=== PATIENT | male | born 1980 | race Caucasian/White ===

== ENCOUNTER 2016-10-03 14:32 | Emergency (ER) | payer SELFPAY ==
[2016-10-03 14:47] VITALS: BP 142/94
--- NOTE | 2016-10-03 16:20 | EDM.PDOC ---
ED HPI Skin/Rash - General Chief Complaint: Skin Complaint Stated Complaint: BUMPS ON SKIN Time Seen by Provider: 10/03/16 14:42 Source: Reports: Patient, RN notes reviewed - History of Present Illness INITIAL COMMENTS - FREE TEXT/NARRATIVE: Patient is concerned about lumps that have been appearing under his skin. He has had one of the right forearm for about 7 years but now he has multiple further lumps that her hearing both forearms, anterior chest and one on each thigh over the past several weeks. He states they are "painful. They never get red or inflamed. There's never been any drainage. He has not been sick with fever chills nausea vomiting or any other unusual symptomatology. He states he has been "gaining weight". He's been off work for about 3 or 4 months, possibly eating more than usual and less active than usual. He is not diabetic. He denies any type of IV drug use or anything of that nature. - Related Data Allergies Allergy/AdvReac Type Severity Reaction Status Date / Time No Known Allergies Allergy Verified 10/03/16 14:42 Home Meds: Ambulatory Orders Medication Instructions Recorded Confirmed . [No Known Home Meds] 10/03/16 10/03/16 Past Medical History - Past Health History Medical/Surgical History: Denies Medical/Surgical History Social & Family History - Tobacco Use Smoking Status *Q: Current Every Day Smoker Years of Tobacco use: 15 Packs/Tins Daily: 0.5 - Recreational Drug Use Recreational Drug Use: No ED ROS GENERAL - Review of Systems Review Of Systems: See Below Constitutional: Denies: fever, chills, diaphoresis HEENT: Denies: Sinus problem, Throat pain Respiratory: Denies: Shortness of Breath, Pleuritic Chest Pain Cardiovascular: Denies: Chest pain GI/Abdominal: Denies: Abdominal pain, Nausea, Vomiting Musculoskeletal: Reports: no symptoms Skin: Reports: other (He has multiple "lumps" Damon of bilateral arms, one on the anterior chest and one each anterior leg.) Neurological: Denies: Headache, Numbness, Tingling, Trouble Speaking, Gait Disturbance ED EXAM, SKIN/RASH Exam: See Below General Appearance: alert, no apparent distress Eye Exam: bilateral eye: PERRL Throat/Mouth: Normal inspection, Normal oropharynx Head: atraumatic. No: facial swelling Neck: supple, full range of motion. No: lymphadenopathy (L), lymphadenopathy (R ) Respiratory/Chest: no respiratory distress, lungs clear, normal breath sounds Cardiovascular: regular rate, rhythm GI/Abdominal: soft, non tender Back Exam: normal inspection Extremities: No: pedal edema, leg pain, increased warmth Neurological: alert, oriented, no motor/sensory deficits Psychiatric: normal affect, normal mood Skin: Warm, Dry, Normal color, Other (There is several raised areas of swelling bilateral forearms. They're not red or inflamed. There is very mild tenderness with these. He is one of the anterior chest and one of each anterior thigh). No : Erythema, Rash (He has no skin rash) Lymphatic: no adenopathy Course - Vital Signs Last Recorded V/S: Last Vital Signs Temp 97.1 F 10/03/16 14:42 Pulse 88 10/03/16 14:42 Resp 15 10/03/16 14:42 BP 142/94 H 10/03/16 14:42 Pulse Ox 98 10/03/16 14:42 - Orders/Labs/Meds Labs: Laboratory Tests 10/03/16 10/03/16 10/03/16 Range/Units 15:35 15:35 15:35 WBC 7.44 (4.23-9.07) K/mm3 RBC 5.72 (4.63-6.08) M/mm3 Hgb 17.1 (13.7-17.5) gm/L Hct 49.2 (40.1-51.0) % MCV 86.0 (79.0-92.2) fl MCH 29.9 (25.7-32.2) pg MCHC 34.8 (32.2-35.5) g/dl RDW Std Deviation 41.1 (35.1-43.9) fL Plt Count 381 H (163-337) K/mm3 MPV 8.6 L (9.4-12.3) fl Neut % (Auto) 56.0 (34.0-67.9) % Lymph % (Auto) 33.9 (21.8-53.1) % Marshall % (Auto) 6.9 (5.3-12.2) % Eos % (Auto) 2.4 (0.8-7.0) Baso % (Auto) 0.4 (0.1-1.2) % Neut # (Auto) 4.17 (1.78-5.38) K/mm3 Lymph # (Auto) 2.52 (1.32-3.57) K/mm3 Marshall # (Auto) 0.51 (0.30-0.82) K/mm3 Eos # (Auto) 0.18 (0.04-0.54) K/mm3 Baso # (Auto) 0.03 (0.01-0.08) K/mm3 Sodium 134 L (136-145) mEq/L Potassium 4.3 (3.5-5.1) mEq/L Chloride 100 (98-107) mEq/L Carbon Dioxide 25 (21-32) mEq/L Anion Gap 13.3 (5-15) BUN 14 (7-18) mg/dL Creatinine 0.9 (0.7-1.3) mg/dL Est Cr Clr Drug Dosing 122.01 mL/min Estimated GFR (MDRD) > 60 (>60) mL/min BUN/Creatinine Ratio 15.6 (14-18) Glucose 109 H (74-106) mg/dL Calcium 9.1 (8.5-10.1) mg/dL Total Bilirubin 0.5 (0.2-1.0) mg/dL AST 15 (15-37) U/L ALT 54 (16-63) U/L Alkaline Phosphatase 92 (46-116) U/L C-Reactive Protein < 0.2 (<1.0) mg/dL Total Protein 8.0 (6.4-8.2) g/dl Albumin 4.4 (3.4-5.0) g/dl Globulin 3.6 gm/dL Albumin/Globulin Ratio 1.2 (1-2) - Re-Assessments/Exams Free Text/Narrative Re-Assessment/Exam: 10/03/16 16:52 Labs have come back normal in terms of what his been looked at today. Elegy of these areas of swelling or not clear at this time. Does not appear to be anything seriously pathologic. And recommend he followup at the clinic for a complete physical, further investigation as needed. Departure - Departure Time of Disposition: 16:20 Disposition: Home, Self-Care 01 Clinical Impression: Nodule of soft tissue Referrals: PCP,None [Primary Care Provider] - Forms: ED Department Discharge Additional Instructions: Followup with Dr. Merida, [facility], call [phone] for appointment. Return to ED if symptoms worsening in any way
== END 2016-10-03 16:49 | disposition home or self-care (01) ==
LOC: JD.ED 14:32
DX: M79.9 Soft tissue disorder, unspecified (principal); F17.210 Nicotine dependence, cigarettes, uncomplicated
CPT/HCPCS: 36415; 80053; 85025; 86140; 99282; 99283

== ENCOUNTER 2018-01-15 09:14 | Emergency (ER) | payer BC ==
[2018-01-15 09:23] VITALS: BP 137/83
[2018-01-15] MEDS ORDERED: Ondansetron 4 MG/2 ML SDV IVPUSH ONE (09:43)
[2018-01-15] MEDS ORDERED: Sodium Chloride 0.9% 500 ML IV ONE (09:43)
[2018-01-15] MEDS ORDERED: Sodium Chloride 0.9% 10 ML Syringe FLUSH PRN (09:43)
[2018-01-15] MEDS ORDERED: HYDROmorphone 0.5 MG/0.5 ML SYRINGE IVPUSH ONE ×2 (09:43→11:05)
--- NOTE | 2018-01-15 09:54 | EDM.PDOC ---
ED HPI GENERAL MEDICAL PROBLEM - General Chief Complaint: Flank Pain Stated Complaint: SIDE AND BACK PAIN POSSIBLE KIDNEY STONES Time Seen by Provider: 01/15/18 09:43 Source of Information: Reports: Patient, RN Notes Reviewed - History of Present Illness INITIAL COMMENTS - FREE TEXT/NARRATIVE: 37-year-old male comes in with right flank pain. He had sudden onset of right back and right flank discomfort about 5 hours ago. The pain continues, sharp shooting and now radiating to the right groin. Feels very similar to kidney stone discomfort that he has had at least on one prior occasion. No nausea or vomiting. No fever or chills. Pain does not cross over to the left side. Right Flank Pain Score (Numeric/FACES): 9 - Related Data Allergies Allergy/AdvReac Type Severity Reaction Status Date / Time No Known Allergies Allergy Verified 01/15/18 09:22 Home Meds: Home Meds . [No Known Home Meds] 10/03/16 [History] Past Medical History - Past Health History Medical/Surgical History: Denies Medical/Surgical History Genitourinary History: Reports: Renal Calculus - Past Surgical History Other Musculoskeletal Surgeries/Procedures:: Torn ACL - surgery for repair. Social & Family History - Family History Family Medical History: Noncontributory - Tobacco Use Smoking Status *Q: Current Every Day Smoker Years of Tobacco use: 10 Packs/Tins Daily: 0.3 - Recreational Drug Use Recreational Drug Use: No ED ROS GENERAL - Review of Systems Review Of Systems: See Below Constitutional: Denies: Fever, Chills, Diaphoresis HEENT: Reports: No Symptoms Respiratory: Denies: Shortness of Breath Cardiovascular: Denies: Chest Pain GI/Abdominal: Reports: Abdominal Pain (Right flank, right groin). Denies: Nausea, Vomiting : Reports: No Symptoms Musculoskeletal: Reports: Back Pain Skin: Reports: No Symptoms Neurological: Reports: No Symptoms ED EXAM, GI/ABD - Physical Exam Exam: See Below General Appearance: Alert, Moderate Distress Eyes: Bilateral: Normal Appearance Throat/Mouth: Normal Inspection Head: Atraumatic Neck: Supple, Full Range of Motion Respiratory/Chest: No Respiratory Distress, Lungs Clear, Normal Breath Sounds Cardiovascular: Regular Rate, Rhythm GI/Abdominal Exam: Soft, Tender (Very mild tenderness right lower mid abdomen) Back Exam: CVA Tenderness (R) Extremities: Normal Inspection, Normal Range of Motion Neurological: Alert Skin Exam: Warm, Dry, Normal Color Course - Vital Signs Last Recorded V/S: Last Vital Signs Temp 97.6 F 01/15/18 09:20 Pulse 98 01/15/18 09:20 Resp 18 01/15/18 09:20 BP 137/83 01/15/18 09:20 Pulse Ox 99 01/15/18 09:20 - Orders/Labs/Meds Orders: Active Orders 24 hr Category Date Time Status Peripheral IV Care [RC] . DIRECTED Care 01/15/18 09:44 Active Ketorolac [Toradol] Med 01/15/18 11:15 Active 30 mg IVPUSH ONETIME Sodium Chloride 0.9% [Saline Flush] Med 01/15/18 09:43 Active 10 ml FLUSH ASDIRECTED PRN Peripheral IV Insertion Adult [OM.PC] Stat Oth 01/15/18 09:43 Ordered Medication Orders Ketorolac Tromethamine (Toradol) 30 mg IVPUSH ONETIME CHEVY Last Admin: 01/15/18 11:26 Dose: 30 mg Sodium Chloride (Saline Flush) 10 ml FLUSH ASDIRECTED PRN PRN Reason: Keep Vein Open Last Admin: 01/15/18 09:57 Dose: 10 ml Meds: Medications Generic Name Dose Route Start Last Admin Trade Name Freq PRN Reason Stop Dose Admin Ketorolac Tromethamine 30 mg 01/15/18 11:15 01/15/18 11:26 Toradol IVPUSH 30 mg ONETIME CHEVY Administration Sodium Chloride 10 ml 01/15/18 09:43 01/15/18 09:57 Saline Flush FLUSH 10 ml ASDIRECTED PRN Administration Keep Vein Open Discontinued Medications Generic Name Dose Route Start Last Admin Trade Name Freq PRN Reason Stop Dose Admin Hydromorphone HCl 1 mg 01/15/18 09:43 01/15/18 09:59 Dilaudid IVPUSH 01/15/18 09:44 1 mg ONETIME ONE Administration Hydromorphone HCl 0.5 mg 01/15/18 11:05 01/15/18 11:23 Dilaudid IVPUSH 01/15/18 11:06 0.5 mg ONETIME ONE Administration Sodium Chloride 500 mls @ 999 mls/hr 01/15/18 09:43 01/15/18 09:54 Normal Saline IV 01/15/18 10:13 999 mls/hr .BOLUS ONE Administration Ondansetron HCl 4 mg 01/15/18 09:43 01/15/18 09:54 Zofran IVPUSH 01/15/18 09:44 4 mg ONETIME ONE Administration - Re-Assessments/Exams Free Text/Narrative Re-Assessment/Exam: 01/15/18 11:[address] shows a 3 mm stone on the right with hydronephrosis. We did treat initially with Dilaudid 1 mg IV. Helped initially but now pain is getting severe again. Eat with a half milligram Dilaudid now and also 30 mg Toradol IV. Departure - Departure Time of Disposition: 11:06 Disposition: Home, Self-Care 01 Condition: Fair Clinical Impression: Ureteric colic - Discharge Information Instructions: Kidney Stones, [id number] Referrals: PCP,None [Primary Care Provider] - Forms: ED Department Discharge Additional Instructions: Strain urine to watch for stone. At 3 mm size that should pass on its own, hopefully within the next day or 2. If you have not seen or collected the stone within 2-3 days follow-up with your regular medical provider for recheck. You may alternate Tylenol and ibuprofen for mild to moderate discomfort. You may take hydrocodone if needed for severe pain. Do not take Tylenol and hydrocodone at same time. Do not drive or work when taking hydrocodone. - My Orders Last 24 Hours: My Active Orders 01/15/18 09:43 Sodium Chloride 0.9% [Saline Flush] 10 ml FLUSH ASDIRECTED PRN Peripheral IV Insertion Adult [OM.PC] Stat 01/15/18 09:44 Peripheral IV Care [RC] . DIRECTED 01/15/18 11:15 Ketorolac [Toradol] 30 mg IVPUSH ONETIME - Assessment/Plan Last 24 Hours: My Active Orders 01/15/18 09:43 Sodium Chloride 0.9% [Saline Flush] 10 ml FLUSH ASDIRECTED PRN Peripheral IV Insertion Adult [OM.PC] Stat 01/15/18 09:44 Peripheral IV Care [RC] . DIRECTED 01/15/18 11:15 Ketorolac [Toradol] 30 mg IVPUSH ONETIME
--- NOTE | 2018-01-15 10:58 | CT ---
CT abdomen and pelvis Technique: Multiple axial sections were obtained from above the kidneys inferiorly through the pubic symphysis. Intravenous contrast not utilized. Study has been performed as a ureteral stone protocol. Findings: Right ureter is mildly prominent in size. This finding is caused by a 3 mm obstructing stone located near the UVJ. Kidneys show no abnormal calcifications. Visualized lung bases shows nothing acute. Liver shows no focal parenchymal abdomen. Spleen appears within normal limits. Adrenal glands show no nodule. Pancreas is within normal limits. Gallbladder contains no calcified gallstones. Aorta shows atherosclerotic change without aneurysm. No retroperitoneal adenopathy or mesenteric abnormalities are seen. No pelvic mass or adenopathy is seen. Appendix is seen and appears normal. Bone window settings were reviewed which shows disc space narrowing and vacuum phenomena at L5-S1 as well as mild posterolateral spurring into both neural foramina. Impression: 1. 3 mm obstructing stone causing proximal hydronephrosis on the right side. Obstructing stone located near the UVJ. 2. Other incidental findings as noted above. Diagnostic code #3
[2018-01-15] MEDS ORDERED: Ketorolac 30 MG/ML SDV IVPUSH SCH (11:15)
== END 2018-01-15 12:18 | disposition home or self-care (01) ==
LOC: JD.ED 09:14
DX: N13.2 Hydronephrosis with renal and ureteral calculous obstruction (principal); F17.210 Nicotine dependence, cigarettes, uncomplicated
CPT/HCPCS: 74176; 96361; 96374; 96375; 96376; 99284; J1170; J1885; J2405; J7040; J7050